=== PATIENT | female | born 2000 | race Caucasian/White ===

== ENCOUNTER 2020-10-29 19:57 | Emergency (ER) | payer OTHER ==
[2020-10-29] MEDS ORDERED: AMOXicillin 250 MG CAP ONE (20:46)
[2020-10-29 21:33] LABS: SARS-CoV-2 NAA Rapid Test Not Detected (NotDetected)
== END 2020-10-29 21:09 | disposition home or self-care (01) ==
LOC: MADERS 19:57
DX: J02.0 Streptococcal pharyngitis (principal); Z20.822 Contact with and (suspected) exposure to COVID-19
CPT/HCPCS: 0240U; 99283